=== PATIENT | female | born 1955 | race African-American/Black ===

== ENCOUNTER 2020-06-23 14:11 | Emergency (ER) | payer OTHER, SELFPAY ==
[2020-06-23] MEDS ORDERED: Morphine 4 MG/ML VIAL ONE (15:04)
[2020-06-23] MEDS ORDERED: Ondansetron ODT 4 MG TAB ONE (15:04)
[2020-06-23] MEDS ORDERED: Morphine 2 MG/ML SYRINGE ONE (15:04)
--- NOTE | 2020-06-23 16:59 | RAD ---
LEFT KNEE FOUR VIEWS: Date: 06-23-2020 FINDINGS: No fracture or joint effusion was seen. Medial joint space narrowing and osteophytes are present, typ ical of osteoarthritis. No bony destructive lesions were seen. IMPRESSION: Medial compartment osteoarthritis. POS: HOME
--- NOTE | 2020-06-23 17:02 | RAD ---
LEFT HIP TWO VIEWS: Date: 06-23-2020 FINDINGS: No fracture was seen. Osteophytes are seen around the joint. The joint space is only mildly narrowed and the articular surfaces are smooth. No bony destructive lesions were seen. There may be some arthr itic changes in the lower left SI joint. IMPRESSION: Mild to moderate osteoarthritis of the hip. POS: HOME
--- NOTE | 2020-06-23 17:07 | RAD ---
LEFT ANKLE THREE VIEWS: Date: 06-23-2020 FINDINGS: An oblique fracture of the lower fibular shaft is present without displacement. There is considerable soft tissue swelling around the joint. Some bony irregularity at the tip of the medial malleolus is probably old. The articular surfaces are smooth. IMPRESSION: Acute nondisplaced fracture of the distal fibula. Code T POS: HOME
--- NOTE | 2020-06-23 17:08 | RAD ---
RIGHT KNEE FOUR VIEWS: Date: 06-23-2020 Comparison: Films of the left knee. FINDINGS: Osteoarthritis is present in this knee as well, though it is more severe. Calcification is seen in me nisci and other cartilage. There is slight joint space narrowing in each compartment. No effusions or fractures were seen. IMPRESSION: Moderate osteoarthritis. POS: HOME
== END 2020-06-23 16:30 | disposition home or self-care (01) ==
LOC: BURERS 14:11
DX: S82.832A Other fracture of upper and lower end of left fibula, initial encounter for closed fracture (principal); S80.01XA Contusion of right knee, initial encounter; M25.552 Pain in left hip; F17.210 Nicotine dependence, cigarettes, uncomplicated; W01.0XXA Fall on same level from slipping, tripping and stumbling without subsequent striking against object, initial encounter
CPT/HCPCS: 29515; 96372; J2270; Q0162

== ENCOUNTER 2020-06-28 13:39 | Emergency (ER) | payer OTHER | END 2020-06-28 14:08 | disposition home or self-care (01) | LOC: BURERS 13:39 | DX: S82.832A Other fracture of upper and lower end of left fibula, initial encounter for closed fracture (principal); F17.210 Nicotine dependence, cigarettes, uncomplicated | CPT/HCPCS: 99283 ==

== ENCOUNTER 2023-01-24 13:48 | Emergency (ER) | payer OTHER, SELFPAY ==
[2023-01-24] MEDS ORDERED: Ibuprofen 200 MG TAB ONE (14:30)
[2023-01-24] MEDS ORDERED: Lidocaine 1% PF 5 ML VIAL ONE (15:39)
[2023-01-24] MEDS ORDERED: Triamcinolone 40 MG/ML VIAL ONE (15:39)
== END 2023-01-24 16:25 | disposition home or self-care (01) ==
LOC: BURERS 13:48
DX: M17.11 Unilateral primary osteoarthritis, right knee (principal); F17.210 Nicotine dependence, cigarettes, uncomplicated
CPT/HCPCS: 20610; J3301

== ENCOUNTER 2025-06-03 11:26 | Emergency (ER) | payer MEDICAID, OTHER ==
[~2025-06-03 11:26] MED LIST: Iopamidol 370 76% 100 ML VIAL ONE
[2025-06-03 13:01] LABS: Troponin I Less than 0.010 ng/mL (< 0.028)
[2025-06-03 13:02] LABS: ALT (SGPT) 12 U/L (Less than 34); AST (SGOT) 28 U/L (11-34); Albumin 3.6 g/dL (3.1-4.5); Alkaline Phosphatase 104 U/L (40-110); Anion Gap 18 mmol/L (10-20); BUN (Urea Nitrogen) 12 mg/dL (9.8-20.1); Bilirubin, Total 0.3 mg/dL (0.3-1.2); CK (CPK) 75 U/L (29-168); Calc. Creatinine Clearance 0 mL/min (70-130); Calcium 9.0 mg/dL (7.8-10.44); Carbon Dioxide 20 mmol/L (23-31); Chloride 105 mmol/L (98-107); Globulin 4.6 g/dL (2.4-3.5); Glucose 93 mg/dL (80-115); Magnesium 1.6 mg/dL (1.6-2.6); Potassium 4.6 mmol/L (3.5-5.1); Sodium 138 mmol/L (136-145)
[2025-06-03 13:07] LABS: Hematocrit 33.7 % (36.0-47.0); Hemoglobin 11.7 g/dL (12.0-16.0); MDiff Complete? YES; Mean Corpuscular Hemoglobin 29.3 pg (27.0-31.0); Mean Corpuscular Volume 84.4 fl (78.0-98.0); Platelet Count 266 10x3/uL (130-400); Red Blood Cell (RBC) Count 3.99 mill/uL (4.20-5.40); White Blood Cell (WBC) Count 6.6 10x3/uL (4.8-10.8)
[2025-06-03] MEDS ORDERED: predniSONE 20 MG TAB ONE (13:15)
[2025-06-03] MEDS ORDERED: Orphenadrine Citrate 60 MG/2 ML VIAL ONE ×2 (13:15→13:21)
[2025-06-03] MEDS ORDERED: Ketorolac Tromethamine 30 MG (1 mL) VIAL ONE (13:21)
[2025-06-03] MEDS ORDERED: cefTRIAXone (ROCEPHIN) 1 GM VIAL ONE (14:38)
[2025-06-03] MEDS ORDERED: Azithromycin 250 MG TAB ONE (14:38)
== END 2025-06-03 15:19 | disposition home or self-care (01) ==
LOC: BURERS 11:26
DX: S39.012A Strain of muscle, fascia and tendon of lower back, initial encounter (principal); J18.9 Pneumonia, unspecified organism; R09.1 Pleurisy; F17.210 Nicotine dependence, cigarettes, uncomplicated; X50.0XXA Overexertion from strenuous movement or load, initial encounter
CPT/HCPCS: 71045; 71275; 80053; 82550; 83735; 83880; 84484; 85025; 85379; 93005; 96365; 96375; J0696; J1885; J2360; J7512; Q9967